=== PATIENT | male | born 1955 | race Caucasian/White ===

== ENCOUNTER → 2017-01-16 | Day surgery (SDC) | payer OTHER ==
[~2017-01-16] MED LIST: ALLO100T PO; BUPIVACAINE HCL PF 0.5% 30 ML VIAL ONE; BUPIVACAINE/EPINEPHRINE 0.5% PF 30 ML VIAL ONE; COLC1TAB7 PO; LACTATED RINGER'S 1000 ML INJ 1,000 ML ONE; LIDOCAINE 1%/EPINEPHrine 1:100,000 SOLN 20 ML VIAL ONE; LIDOCAINE HCL 1% 50 ML VIAL ONE; MIDAZOLAM HCL 2 MG/2 ML VIAL ONE; PROPOFOL 500 MG/50 ML BTL IV ONE; ceFAZolin 2 GM PREMIX 50 ML ONE
--- NOTE | 2017-01-18 21:01 | MP ---
cc: BRIAN JASMINE DPM DATE OF SURGERY 01/[birth year]17 DATE OF 53 PREOPERATIVE DIAGNOSIS Right 5th toe derotation hammertoe POSTOPERATIVE DIAGNOSIS Right 5th toe derotation hammertoe PROCEDURE 1. Right derotational arthroplasty 2. Right skin plasty COMPLICATIONS None. SPECIMENS None. SURGEON Dr. Delgado Jasmine SR. [employer] Staff TOURNIQUET TIME Right ankle tourniquet at 250 mmHg for 13 minutes. ESTIMATED BLOOD LOSS 3 mL ANESTHESIA MAC with 10 mL 0.5 Marcaine and 1% Lidocaine plain preoperatively and 7 mL of 0.5 Marcaine postoperatively. INDICATIONS This patient is a 61 year old male with a chief complaint of a right 5th digit hammertoe. It is derotating and the bone on the inside is rubbing a callus in between the 4th and 5th digits. The patient is requesting surgical intervention for problem at this time due to difficulty walking and painful callus. The patient understands the procedure performed today as well as the potential risks and complications involved. All questions were answered. Risks versus benefits discussed at length. PROCEDURE IN DETAIL The patient was brought to the operating room, placed on the operating room table in supine position. Pneumatic ankle tourniquet was placed about the right ankle. Foot was scrubbed, prepped and draped in usual sterile fashion. 10 mL of 0.5 Marcaine plain and 1% Lidocaine plain was injected preoperatively. First attention was directed in which an incision in an elliptical format starting proximal lateral and moving distal medial was made. The incision was deepened and the skin plasty in between the incisions was removed. Once at the level of the joint, the joint was exposed and the proximal phalanx head was also exposed with a lot of hypertrophic ossification medially. That was removed with a rongeur. A sagittal saw was used to remove the majority of the head of the proximal phalanx. Next, attention was directed to the middle phalanx with the base removed with a sagittal saw. The area was copiously flushed. There was found to be no obstruction where the callus is. The callus was debrided with a blade and a C arm was used to reveal an arthroplasty of the proximal interphalangeal joint of the 5th toe. There was no prominence from the skin felt. With the area copiously flushed, C arm was used to reveal good position and the tendon as best as possible was reapproximated and secured with Vicryl and Vicryl was used to close subcutaneous tissue. Nylon was used to close the skin and the toe was slightly derotated into a good anatomical position. Another 7 mL of 0.5 Marcaine plain was injected postoperatively. Adaptic, 4x4, cast padding, Ryan and a boot was placed. The patient handled anesthesia well. SUSAN Mcfadden/ /3:26 PM /8:44 PM
== END | disposition home or self-care (01) ==
LOC: ESDC 12:14
PROVIDERS: ATTEND Podiatrist Foot & Ankle Surgery
DX: M20.41 Other hammer toe(s) (acquired), right foot (principal)
CPT/HCPCS: 01480; 28285; 73620; 76000; J0690; J2250; J3010; J7120